=== PATIENT | male | born 1970 ===

== ENCOUNTER 2019-12-15 19:08 | Emergency (ER) | payer BC ==
[~2019-12-15] VITALS: Ht 182.9 cm; Wt 104.3 kg
== END 2019-12-15 20:39 | disposition home or self-care (01) ==
LOC: ER 19:08
DX: S01.01XA Laceration without foreign body of scalp, initial encounter (principal); Z23 Encounter for immunization; W18.30XA Fall on same level, unspecified, initial encounter
CPT/HCPCS: 12001; 90471; 90714; 99282-25

== ENCOUNTER 2019-12-22 18:44 | Emergency (ER) | payer BC ==
[~2019-12-22] VITALS: Ht 185.4 cm; Wt 99.8 kg
== END 2019-12-22 20:10 | disposition home or self-care (01) ==
LOC: ER 18:44
DX: S01.01XD Laceration without foreign body of scalp, subsequent encounter (principal)